=== PATIENT | female | born 1980 | race Caucasian/White ===

== ENCOUNTER → 2020-09-02 | Outpatient (CLI) | payer OTHER ==
[~2020-09-02] MED LIST: AUGMENTIN 875-1 EACH PO; BENADRYL 50MG C50 MG PO; DECADRON6 MG PO; IBUPROFEN800 MG PO; MACROBID 100 M100 MG PO; MULTI VITAMIN PO; PROTONIX 40 MG40 M1 PO; ST. JOSEPH ASPI81 MG PO; ZITHROMAX250 MG PO; ZOFRAN ODT 4 MG4 MG PO; ZOFRAN4 MG PO
== END ==
LOC: EROP 19:34
DX: Z20.828 Contact with and (suspected) exposure to other viral communicable diseases (principal)
CPT/HCPCS: U0002

== ENCOUNTER → 2020-09-11 | Outpatient (CLI) | payer BC, OTHER | LOC: EROP 17:12 | DX: Z20.822 Contact with and (suspected) exposure to COVID-19 (principal) | CPT/HCPCS: 87635 ==

== ENCOUNTER 2020-11-10 06:14 | Emergency (ER) | payer BC, OTHER ==
[~2020-11-10 06:14] MED LIST changes: -DECADRON6 MG PO; -ST. JOSEPH ASPI81 MG PO; -ZITHROMAX250 MG PO
[2020-11-10 06:27] LABS: HEMOGLOBIN 12.7 gm/dl (12.3-15.3); RED BLOOD COUNT 4.13 M/UL (4.00-5.10); WHITE BLOOD COUNT 7.4 K/UL (4.5-11.0)
[2020-11-10 06:58] LABS: BUN/CREATININE RATIO 20 (0-10)
== END 2020-11-10 08:09 | disposition home or self-care (01) ==
LOC: ER1 06:14
PROVIDERS: Family Medicine
DX: R07.89 Other chest pain (principal); Z90.49 Acquired absence of other specified parts of digestive tract
CPT/HCPCS: 71045; 80053; 82550; 82553; 83874; 84439; 84443; 84484; 85025; 93005; 99285

== ENCOUNTER 2021-02-21 19:20 | Emergency (ER) | payer BC, OTHER ==
[2021-02-21 20:29] LABS: HEMOGLOBIN 12.3 gm/dl (12.3-15.3); RED BLOOD COUNT 3.96 M/UL (4.00-5.10); WHITE BLOOD COUNT 2.6 K/UL (4.5-11.0)
[2021-02-21 20:58] LABS: BUN/CREATININE RATIO 11 (0-10)
[2021-02-21] MEDS ORDERED: ZITHROMAX250 MG PO (21:17)
[2021-02-21] MEDS ORDERED: ST. JOSEPH ASPI81 MG PO (21:18)
[2021-02-21] MEDS ORDERED: DECADRON6 MG PO (21:19)
== END 2021-02-21 21:56 | disposition home or self-care (01) ==
LOC: ER1 19:20
PROVIDERS: Physician Assistant
DX: U07.1 COVID-19 (principal); Z90.49 Acquired absence of other specified parts of digestive tract
CPT/HCPCS: 71045; 80053; 82550; 82553; 83874; 84484; 85025; 85379; 93005; 96374; 96375; 99285; J1100; J1885; J2405; J7030

== ENCOUNTER 2021-11-23 15:05 | Emergency (ER) | payer BC ==
[~2021-11-23 15:05] MED LIST changes: +DECADRON6 MG PO; +ST. JOSEPH ASPI81 MG PO; +ZITHROMAX250 MG PO
[2021-11-23 16:04] LABS: HEMOGLOBIN 12.4 gm/dl (12.3-15.3); RED BLOOD COUNT 4.06 M/UL (4.00-5.10); WHITE BLOOD COUNT 5.4 K/UL (4.5-11.0)
[2021-11-23 16:31] LABS: BUN/CREATININE RATIO 13 (0-10)
[2021-11-23] MEDS ORDERED: OMNICEF 300 MG300 MG PO (18:30)
[2021-11-23] MEDS ORDERED: IBU600 MG PO (18:30)
== END 2021-11-23 18:45 | disposition home or self-care (01) ==
LOC: ER1 15:05
PROVIDERS: Student in an Organized Health Care Education/Training Program
DX: N39.0 Urinary tract infection, site not specified (principal); E07.9 Disorder of thyroid, unspecified; Z87.442 Personal history of urinary calculi; Z79.890 Hormone replacement therapy
CPT/HCPCS: 80053; 81001; 83690; 84703; 85025; 96374; 96375; 99284; J2270; J2405; Q9967